=== PATIENT | female | born 1995 | race Caucasian/White ===

== ENCOUNTER 2017-09-27 19:59 | Emergency (ER) | payer OTHER, MEDICAID ==
[~2017-09-27] VITALS: Ht 157.5 cm; Wt 98.4 kg
[~2017-09-27 19:59] MED LIST: ABILIFY20 MG PO; ADIPEX-P37.5 MG PO; ADULT LOW DOSE81 MG PO; AUGMENTIN 875-1 EACH PO; BACTRIM DS TAB1 EACH PO; BENTYL 20 MG TA20 M1 PO; CEPHALEXIN 500500 M3 PO; CONCERTA27 MG PO; GENTAMICIN SU3 MG/ML OPHTHALMIC; IBUPROFEN 600600 M1 PO; K-DUR 20 MEQ T20 MEQ PO; KEFLEX500 M1 PO; LAMICTAL100 MG PO; LEVOTHYROXIN0.075 MG PO; MACROBID 100 M100 M2 PO; NAPROSYN500 MG PO; NOHOMEMEDICATIONS; NORCO 5-325 TA1 EACH PO; PHENTERMINE H37.5 MG PO; ROBAXIN500 MG PO; ULTRAM 50MG TAB50 MG PO; VISTARIL50 MG PO; VITAFOL-OB+DHA1 EACH PO; ZOFRAN ODT4 MG PO; [UNRECOGNIZED DRUG - OTHER]; [UNRECOGNIZED DRUG - REMARK] PO
[2017-09-27] MEDS ORDERED: VISTARIL 25 MG25 M1 PO (20:05)
[2017-09-27 20:30] VITALS: BP 108/65
== END 2017-09-27 20:31 | disposition home or self-care (01) ==
LOC: M.ERS 19:59
DX: O26.893 Other specified pregnancy related conditions, third trimester (principal); M54.42 Lumbago with sciatica, left side; M54.41 Lumbago with sciatica, right side; F31.9 Bipolar disorder, unspecified; F90.9 Attention-deficit hyperactivity disorder, unspecified type; F43.10 Post-traumatic stress disorder, unspecified; E03.9 Hypothyroidism, unspecified; F17.210 Nicotine dependence, cigarettes, uncomplicated; Z88.8 Allergy status to other drugs, medicaments and biological substances; Z3A.27 27 weeks gestation of pregnancy

== ENCOUNTER 2018-02-18 02:21 | Emergency (ER) | payer OTHER, MEDICAID ==
[~2018-02-18] VITALS: Ht 157.5 cm; Wt 95.3 kg
[~2018-02-18 02:21] MED LIST changes: +VISTARIL 25 MG25 M1 PO
[2018-02-18] MEDS ORDERED: ZOLOFT25 MG (02:29)
[2018-02-18] MEDS ORDERED: KEFLEX500 M1 PO (02:35)
[2018-02-18 02:49] VITALS: BP 110/61
== END 2018-02-18 02:50 | disposition home or self-care (01) ==
LOC: M.ERS 02:21
DX: N99.820 Postprocedural hemorrhage of a genitourinary system organ or structure following a genitourinary system procedure (principal); O86.0 Infection of obstetric surgical wound; E03.9 Hypothyroidism, unspecified; F31.9 Bipolar disorder, unspecified; F90.9 Attention-deficit hyperactivity disorder, unspecified type; F17.210 Nicotine dependence, cigarettes, uncomplicated; Z88.8 Allergy status to other drugs, medicaments and biological substances

== ENCOUNTER 2018-06-09 19:01 | Emergency (ER) | payer OTHER, MEDICAID ==
[~2018-06-09] VITALS: Ht 160 cm; Wt 104.3 kg
[~2018-06-09 19:01] MED LIST changes: +ZOLOFT25 MG
[2018-06-09] MEDS ORDERED: LATUDA20 MG PO (19:18)
[2018-06-09] MEDS ORDERED: LAMICTAL100 MG PO (19:19)
[2018-06-09] MEDS ORDERED: STRATTERA18 MG PO (19:19)
[2018-06-09] MEDS ORDERED: ZPAK PO (20:48)
[2018-06-09 21:12] VITALS: BP 121/73
== END 2018-06-09 21:13 | disposition home or self-care (01) ==
LOC: M.ERS 19:01
DX: J20.9 Acute bronchitis, unspecified (principal); F31.9 Bipolar disorder, unspecified; F90.9 Attention-deficit hyperactivity disorder, unspecified type; E03.9 Hypothyroidism, unspecified; F17.210 Nicotine dependence, cigarettes, uncomplicated; Z88.8 Allergy status to other drugs, medicaments and biological substances

== ENCOUNTER 2018-06-20 17:15 | Emergency (ER) | payer OTHER, MEDICAID ==
[~2018-06-20] VITALS: Ht 157.5 cm; Wt 104.3 kg
[~2018-06-20 17:15] MED LIST changes: +LATUDA20 MG PO; +STRATTERA18 MG PO; +ZPAK PO
[2018-06-20 17:43] LABS: ABSOLUTE BASOPHILS 0.1 thou/uL (0.0-0.2); ABSOLUTE EOSINOPHILS 0.1 thou/uL (0.0-0.7); ABSOLUTE LYMPHOCYTES 2.8 thou/uL (0.8-5.3); ABSOLUTE MONOCYTES 0.5 thou/uL (0.0-1.2); ABSOLUTE NEUTROPHILS 7.7 thou/uL (1.6-8.1); BASOPHILS 0.8 %; EOSINOPHILS 1.1 %; HEMATOCRIT 42.9 % (37.0-47.0); HEMOGLOBIN 14.2 gm/dL (12.0-15.0); LYMPHOCYTES 24.7 %; MCH 26.9 pg (26.0-34.0); MCV 81.7 fL (80.0-100.0); MONOCYTES 4.4 %; MPV 8.4 fl. (7.2-11.1); NUCLEATED RBCS 0 /100WBC; PLATELET COUNT* 297 thou/uL (150-400); RBC 5.26 mil/uL (4.20-5.00); WBC 11.2 thou/uL (4.0-11.0)
[2018-06-20 17:51] LABS: ANION GAP 9 mmol/L (7-16); BUN 10 mg/dL (7-18); CALCIUM 9.7 mg/dL (8.5-10.1); CHLORIDE 103 mmol/L (98-107); CO2 27 mmol/L (21-32); CREATININE 0.8 mg/dL (0.6-1.3); GLUCOSE 93 mg/dL (70-99); POTASSIUM 4.1 mmol/L (3.5-5.1); SODIUM 139 mmol/L (136-145)
[2018-06-20 17:56] LABS: ALBUMIN 3.4 g/dL (3.4-5.0); ALKALINE PHOSPHATASE 106 U/L (46-116); SGOT 47 U/L (15-37); SGPT 81 U/L (30-65); TOTAL BILIRUBIN 0.2 mg/dL (<0.1-1.0); TOTAL PROTEIN 7.8 g/dL (6.4-8.2)
[2018-06-20 18:01] LABS: URINE BILIRUBIN NEGATIVE (Negative); URINE BLOOD TRACE (Negative); URINE CLARITY CLEAR; URINE COLOR YELLOW; URINE GLUCOSE-RANDOM NEGATIVE (Negative); URINE KETONES NEGATIVE (Negative); URINE LEUKOCYTES-REFLEX NEGATIVE (Negative); URINE NITRITE-REFLEX NEGATIVE (Negative); URINE PROTEIN NEGATIVE (Negative); URINE UROBILINOGEN 0.2 E.U./dl (0.2-1.0)
[2018-06-20 18:10] LABS: TROPONIN-I LEVEL <0.06 ng/mL (<0.06)
[2018-06-20 18:40] VITALS: BP 116/68
--- NOTE | 2018-06-21 10:22 | EKG ---
[place] [address] ELECTROCARDIOGRAM REPORT Name: POLLY PURILE [facility] [id number] Admission: 06/20/18 Attend Phys: Discharge: 06/20/18 Date of : [birth year] Report #: [id number] THIS REPORT FOR: //name// [facility] ED Test Date: 2018-06-20 Test Time: 17:20:30 Pat Name: POLLY PURI Department: Room: Gender: F Chief Ii Dispatcher: Ailyn MURPHY : 1995 Requested By: Devin Bermudez Order Number: [id number] MD: Luiz Turner Measurements Intervals [place] Rate: 85 P: 7 SD: 134 QRS: 31 QRSD: 88 T: 15 QT: 337 QTc: 401 Interpretive Statements Sinus rhythm Abnormal Q suggests inferior infarct No previous ECG available for comparison Electronically Signed On 06-21-2018 10:22:03 TABLE OPERATOR by Luiz Turner [email or web address] <ELECTRONICALLY SIGNED> By: Luiz Turner MD, [facility] 06/21/18 1022 1720 1720 Luiz Turner MD, FACC /EPI
== END 2018-06-20 18:40 | disposition home or self-care (01) ==
LOC: M.ERS 17:15
PROVIDERS: Nurse Practitioner Family
DX: R07.89 Other chest pain (principal); F31.9 Bipolar disorder, unspecified; F90.9 Attention-deficit hyperactivity disorder, unspecified type; E03.9 Hypothyroidism, unspecified; F17.210 Nicotine dependence, cigarettes, uncomplicated; Z88.8 Allergy status to other drugs, medicaments and biological substances

== ENCOUNTER 2018-07-18 07:55 | Emergency (ER) | payer OTHER, MEDICAID ==
[~2018-07-18] VITALS: Ht 160 cm; Wt 108.9 kg
[2018-07-18] MEDS ORDERED: BACTRIM DS TAB1 EACH PO (08:33)
[2018-07-18 08:48] VITALS: BP 107/63
== END 2018-07-18 08:49 | disposition home or self-care (01) ==
LOC: M.ERS 07:55
DX: L03.114 Cellulitis of left upper limb (principal); F17.210 Nicotine dependence, cigarettes, uncomplicated; F31.9 Bipolar disorder, unspecified; F90.9 Attention-deficit hyperactivity disorder, unspecified type; E03.9 Hypothyroidism, unspecified; Z88.8 Allergy status to other drugs, medicaments and biological substances

== ENCOUNTER 2018-07-20 22:30 | Emergency (ER) | payer OTHER, MEDICAID ==
[~2018-07-20] VITALS: Ht 160 cm; Wt 108.9 kg
[2018-07-20] MEDS ORDERED: HYDROXYZINE (22:37)
[2018-07-20] MEDS ORDERED: RANITIDINE (22:37)
[2018-07-20 23:17] LABS: INFLUENZA A ANTIGEN None Detected (None Detect); INFLUENZA B ANTIGEN None Detected (None Detect)
[2018-07-20] MEDS ORDERED: ACETAMINOPHEN-1 EAC1 PO (23:21)
[2018-07-20 23:32] VITALS: BP 117/78
== END 2018-07-20 23:34 | disposition home or self-care (01) ==
LOC: M.ERS 22:30
PROVIDERS: Physician Assistant
DX: B34.9 Viral infection, unspecified (principal); F31.9 Bipolar disorder, unspecified; F90.9 Attention-deficit hyperactivity disorder, unspecified type; E03.9 Hypothyroidism, unspecified; F17.210 Nicotine dependence, cigarettes, uncomplicated; Z88.8 Allergy status to other drugs, medicaments and biological substances

== ENCOUNTER 2019-05-24 20:08 | Emergency (ER) | payer OTHER, MEDICAID ==
[~2019-05-24] VITALS: Ht 160 cm; Wt 110.7 kg
[~2019-05-24 20:08] MED LIST changes: +ACETAMINOPHEN-1 EAC1 PO; +HYDROXYZINE; +RANITIDINE
[2019-05-24] MEDS ORDERED: CONCERTA54 M1 PO (20:29)
[2019-05-24] MEDS ORDERED: CLEOCIN HCL300 MG PO (20:56)
[2019-05-24] MEDS ORDERED: NORCO 5-325 TA1 EAC1 PO (20:56)
[2019-05-24 21:03] VITALS: BP 125/80
== END 2019-05-24 21:13 | disposition home or self-care (01) ==
LOC: M.ERS 20:08
DX: L03.115 Cellulitis of right lower limb (principal); F31.9 Bipolar disorder, unspecified; E03.9 Hypothyroidism, unspecified; F90.9 Attention-deficit hyperactivity disorder, unspecified type; F17.210 Nicotine dependence, cigarettes, uncomplicated; Z88.8 Allergy status to other drugs, medicaments and biological substances

== ENCOUNTER 2019-06-30 09:44 | Emergency (ER) | payer OTHER, MEDICAID ==
[~2019-06-30] VITALS: Ht 160 cm; Wt 107.5 kg
[~2019-06-30 09:44] MED LIST changes: +CLEOCIN HCL300 MG PO; +CONCERTA54 M1 PO; +NORCO 5-325 TA1 EAC1 PO
[2019-06-30 10:17] LABS: HEMATOCRIT 48.2 % (37.0-47.0); HEMOGLOBIN 16.2 gm/dL (12.0-15.0); MCH 28.3 pg (26.0-34.0); MCHC 33.7 g/dL (28.0-37.0); MPV 9.5 fl. (7.2-11.1); NUCLEATED RBCS 0 /100WBC; PLATELET COUNT* 262 thou/uL (150-400); RBC 5.74 mil/uL (4.20-5.00); RDW-CV 13.3 % (10.5-14.5); WBC 12.6 thou/uL (4.0-11.0)
[2019-06-30 10:24] LABS: CALCIUM 9.2 mg/dL (8.5-10.1); CREATININE 0.9 mg/dL (0.6-1.3); POTASSIUM 4.2 mmol/L (3.5-5.1)
[2019-06-30 10:28] LABS: ALBUMIN 3.9 g/dL (3.4-5.0); TOTAL BILIRUBIN 0.6 mg/dL (<0.1-1.0); TOTAL PROTEIN 8.3 g/dL (6.4-8.2)
[2019-06-30 10:42] LABS: ABSOLUTE LYMPHOCYTES 0.9 thou/uL (0.8-5.3); ABSOLUTE MONOCYTES 0.1 thou/uL (0.0-1.2); ABSOLUTE NEUTROPHILS 11.6 thou/uL (1.6-8.1); ANISOCYTOSIS 1+; PLATELET ESTIMATE ADEQUATE; POIKILOCYTOSIS 1+
[2019-06-30 11:36] LABS: URINE BLOOD 1+ (Negative); URINE CLARITY CLEAR; URINE COLOR YELLOW; URINE GLUCOSE-RANDOM NEGATIVE (Negative); URINE KETONES NEGATIVE (Negative); URINE LEUKOCYTES-REFLEX NEGATIVE (Negative); URINE NITRITE-REFLEX NEGATIVE (Negative); URINE PROTEIN TRACE (Negative); URINE SPECIFIC GRAVITY 1.025 (1.005-1.030); URINE UROBILINOGEN 0.2 E.U./dl (0.2-1.0)
[2019-06-30 11:42] LABS: ICTOTEST (BILI CONFIRMATORY) Negative (Negative); URINE BILIRUBIN 1+ (Negative)
[2019-06-30 11:45] LABS: SQUAMOUS 4-10 Moderate /LPF (0-3)
[2019-06-30 11:46] LABS: BACTERIA-REFLEX 1-9 Few /HPF (None Seen); CASTS None Seen /LPF (None Seen); CRYSTALS None Seen /LPF (None Seen); MUCUS 4-6 Moderate strn/LPF (None Seen); URINE RBC 0-2 Rare /HPF (0-2); URINE WBC-REFLEX 0-5 Rare /HPF (0-5)
[2019-06-30] MEDS ORDERED: NABUMETONE 750750 M1 PO (12:35)
[2019-06-30] MEDS ORDERED: ONDANSETRON HCL4 M2 PO (12:35)
[2019-06-30 13:19] VITALS: BP 115/68
== END 2019-06-30 13:21 | disposition home or self-care (01) ==
LOC: M.ERS 09:44
PROVIDERS: Nurse Practitioner Family
DX: K52.9 Noninfective gastroenteritis and colitis, unspecified (principal); K56.7 Ileus, unspecified; F31.9 Bipolar disorder, unspecified; E03.9 Hypothyroidism, unspecified; F17.210 Nicotine dependence, cigarettes, uncomplicated; Z88.8 Allergy status to other drugs, medicaments and biological substances

== ENCOUNTER 2019-12-09 14:54 | Emergency (ER) | payer OTHER, MEDICAID ==
[~2019-12-09] VITALS: Ht 157.5 cm; Wt 108.9 kg
[~2019-12-09 14:54] MED LIST changes: +NABUMETONE 750750 M1 PO; +ONDANSETRON HCL4 M2 PO
[2019-12-09 15:10] VITALS: BP 130/94
[2019-12-09] MEDS ORDERED: IMITREX 50 MG T50 MG PO (15:56)
== END 2019-12-09 16:10 | disposition home or self-care (01) ==
LOC: M.ERS 14:54
DX: G44.209 Tension-type headache, unspecified, not intractable (principal); E03.9 Hypothyroidism, unspecified; F31.9 Bipolar disorder, unspecified; F90.9 Attention-deficit hyperactivity disorder, unspecified type; F17.210 Nicotine dependence, cigarettes, uncomplicated; Z98.890 Other specified postprocedural states; Z88.8 Allergy status to other drugs, medicaments and biological substances

== ENCOUNTER 2019-12-10 17:33 | Emergency (ER) | payer OTHER, MEDICAID ==
[~2019-12-10] VITALS: Ht 157.5 cm; Wt 108.9 kg
[~2019-12-10 17:33] MED LIST changes: +IMITREX 50 MG T50 MG PO
[2019-12-10 18:50] LABS: HEMATOCRIT 41.2 % (37.0-47.0); HEMOGLOBIN 14.2 gm/dL (12.0-15.0); MCH 29.4 pg (26.0-34.0); MCHC 34.5 g/dL (28.0-37.0); MCV 85.5 fL (80.0-100.0); MPV 9.1 fl. (7.2-11.1); RBC 4.82 mil/uL (4.20-5.00); RDW-CV 12.7 % (10.5-14.5); WBC 9.2 thou/uL (4.0-11.0)
[2019-12-10 19:13] LABS: CALCIUM 10.5 mg/dL (8.5-10.1); CREATININE 0.9 mg/dL (0.6-1.3); POTASSIUM 3.6 mmol/L (3.5-5.1)
[2019-12-10 19:17] LABS: ALBUMIN 3.4 g/dL (3.4-5.0); TOTAL BILIRUBIN 0.3 mg/dL (<0.1-1.0); TOTAL PROTEIN 7.5 g/dL (6.4-8.2)
[2019-12-10 19:41] VITALS: BP 123/82
== END 2019-12-10 19:41 | disposition home or self-care (01) ==
LOC: M.ERS 17:33
PROVIDERS: Emergency Medicine Emergency Medical Services
DX: R51 Headache (principal); Z88.8 Allergy status to other drugs, medicaments and biological substances; R42 Dizziness and giddiness; E03.9 Hypothyroidism, unspecified; F17.210 Nicotine dependence, cigarettes, uncomplicated; Z98.890 Other specified postprocedural states

== ENCOUNTER 2020-05-19 19:09 | Emergency (ER) | payer OTHER, MEDICAID ==
[~2020-05-19] VITALS: Ht 160 cm; Wt 113.4 kg
[2020-05-19] MEDS ORDERED: PROPRANOLOL 20M20 M1 PO (19:32)
[2020-05-19 20:18] LABS: HEMATOCRIT 40.1 % (37.0-47.0); HEMOGLOBIN 13.4 gm/dL (12.0-15.0); MCH 28.9 pg (26.0-34.0); MCHC 33.5 g/dL (28.0-37.0); MCV 86.3 fL (80.0-100.0); MPV 8.5 fl. (7.2-11.1); NUCLEATED RBCS 0 /100WBC; PLATELET COUNT* 213 thou/uL (150-400); RBC 4.64 mil/uL (4.20-5.00); RDW-CV 12.9 % (10.5-14.5); WBC 19.9 thou/uL (4.0-11.0)
[2020-05-19 20:25] LABS: CREATININE 0.9 mg/dL (0.6-1.3); POTASSIUM 3.6 mmol/L (3.5-5.1)
[2020-05-19 20:30] LABS: ALBUMIN 3.2 g/dL (3.4-5.0); TOTAL BILIRUBIN 0.4 mg/dL (<0.1-1.0); TOTAL PROTEIN 8.5 g/dL (6.4-8.2)
[2020-05-19 20:32] LABS: MONOTEST (MONOSPOT)* NEGATIVE (Negative)
[2020-05-19 20:37] LABS: ABSOLUTE NEUTROPHILS 16.9 thou/uL (1.6-8.1); PLATELET ESTIMATE ADEQUATE
[2020-05-19] MEDS ORDERED: AMOXIL 875 MG875 M2 PO (20:51)
[2020-05-19 21:05] VITALS: BP 102/65
== END 2020-05-19 21:06 | disposition home or self-care (01) ==
LOC: M.ERS 19:09
PROVIDERS: Emergency Medicine Emergency Medical Services
DX: J02.0 Streptococcal pharyngitis (principal); Z20.828 Contact with and (suspected) exposure to other viral communicable diseases; E03.9 Hypothyroidism, unspecified; F17.210 Nicotine dependence, cigarettes, uncomplicated; Z88.8 Allergy status to other drugs, medicaments and biological substances; Z98.890 Other specified postprocedural states

== ENCOUNTER 2020-06-02 14:30 | Emergency (ER) | payer OTHER, MEDICAID ==
[~2020-06-02] VITALS: Ht 160 cm; Wt 112.5 kg
[~2020-06-02 14:30] MED LIST changes: +AMOXIL 875 MG875 M2 PO; +PROPRANOLOL 20M20 M1 PO
[2020-06-02 15:20] LABS: HEMATOCRIT 42.6 % (37.0-47.0); HEMOGLOBIN 13.9 gm/dL (12.0-15.0); MCH 28.4 pg (26.0-34.0); MCHC 32.7 g/dL (28.0-37.0); MCV 86.8 fL (80.0-100.0); MPV 8.3 fl. (7.2-11.1); NUCLEATED RBCS 0 /100WBC; PLATELET COUNT* 302 thou/uL (150-400); RBC 4.91 mil/uL (4.20-5.00); RDW-CV 12.7 % (10.5-14.5); WBC 19.5 thou/uL (4.0-11.0)
[2020-06-02 15:28] LABS: CALCIUM 9.3 mg/dL (8.5-10.1); CREATININE 0.8 mg/dL (0.6-1.3); POTASSIUM 3.8 mmol/L (3.5-5.1)
[2020-06-02 15:56] LABS: ABSOLUTE LYMPHOCYTES 2.7 thou/uL (0.8-5.3); ABSOLUTE MONOCYTES 0.6 thou/uL (0.0-1.2); ABSOLUTE NEUTROPHILS 16.2 thou/uL (1.6-8.1)
[2020-06-02 15:57] LABS: PLATELET ESTIMATE ADEQUATE
[2020-06-02 16:37] LABS: URINE BILIRUBIN NEGATIVE (Negative); URINE BLOOD NEGATIVE (Negative); URINE CLARITY CLEAR; URINE COLOR YELLOW; URINE GLUCOSE-RANDOM NEGATIVE (Negative); URINE KETONES NEGATIVE (Negative); URINE LEUKOCYTES-REFLEX NEGATIVE (Negative); URINE NITRITE-REFLEX NEGATIVE (Negative); URINE PROTEIN NEGATIVE (Negative); URINE SPECIFIC GRAVITY 1.015 (1.005-1.030); URINE UROBILINOGEN 0.2 E.U./dl (0.2-1.0)
[2020-06-02] MEDS ORDERED: CLINDAMYCIN HC150 MG PO (17:20)
[2020-06-02] MEDS ORDERED: MAGIC MOUTHWASH SWISH&SPIT (17:23)
[2020-06-02 17:33] VITALS: BP 128/68
== END 2020-06-02 17:33 | disposition home or self-care (01) ==
LOC: M.ERS 14:30
PROVIDERS: Nurse Practitioner Psychiatric/Mental Health
DX: J03.80 Acute tonsillitis due to other specified organisms (principal); B96.89 Other specified bacterial agents as the cause of diseases classified elsewhere; H92.03 Otalgia, bilateral; F31.9 Bipolar disorder, unspecified; F90.9 Attention-deficit hyperactivity disorder, unspecified type; E03.9 Hypothyroidism, unspecified; F17.210 Nicotine dependence, cigarettes, uncomplicated; Z98.890 Other specified postprocedural states; Z88.8 Allergy status to other drugs, medicaments and biological substances

== ENCOUNTER 2020-06-19 23:51 | Emergency (ER) | payer OTHER, MEDICAID ==
[~2020-06-19] VITALS: Ht 160 cm; Wt 112.5 kg
[~2020-06-19 23:51] MED LIST changes: +CLINDAMYCIN HC150 MG PO; +MAGIC MOUTHWASH SWISH&SPIT
[2020-06-20] MEDS ORDERED: MIRENA1 EACH (00:10)
[2020-06-20] MEDS ORDERED: AUGMENTIN 875-1 EACH PO (01:35)
[2020-06-20 01:56] VITALS: BP 120/60
== END 2020-06-20 01:57 | disposition home or self-care (01) ==
LOC: M.ERS 23:51
DX: J02.0 Streptococcal pharyngitis (principal); E03.9 Hypothyroidism, unspecified; F17.210 Nicotine dependence, cigarettes, uncomplicated; Z98.890 Other specified postprocedural states; Z88.8 Allergy status to other drugs, medicaments and biological substances

== ENCOUNTER 2020-08-23 23:41 | Emergency (ER) | payer OTHER, MEDICAID ==
[~2020-08-23] VITALS: Ht 160 cm; Wt 108.9 kg
[~2020-08-23 23:41] MED LIST changes: +MIRENA1 EACH
[2020-08-23 23:54] VITALS: BP 118/60
== END 2020-08-24 00:27 | disposition home or self-care (01) ==
LOC: M.ERS 23:41
DX: S63.591A Other specified sprain of right wrist, initial encounter (principal); S83.8X1A Sprain of other specified parts of right knee, initial encounter; S83.8X2A Sprain of other specified parts of left knee, initial encounter; E03.9 Hypothyroidism, unspecified; F17.210 Nicotine dependence, cigarettes, uncomplicated; Z88.8 Allergy status to other drugs, medicaments and biological substances; Z98.890 Other specified postprocedural states; X50.1XXA Overexertion from prolonged static or awkward postures, initial encounter; Y93.01 Activity, walking, marching and hiking; Y92.89 Other specified places as the place of occurrence of the external cause; Y99.9 Unspecified external cause status

== ENCOUNTER 2021-01-03 17:28 | Emergency (ER) | payer OTHER, MEDICAID ==
[~2021-01-03] VITALS: Ht 160 cm; Wt 108.9 kg
[2021-01-03] MEDS ORDERED: TESSALON PERLE100 MG PO (18:33)
[2021-01-03] MEDS ORDERED: MEDROLDOSEPACK PO (18:33)
[2021-01-03] MEDS ORDERED: PROAIR HFA8.5 GM INH (18:33)
[2021-01-03 18:40] VITALS: BP 113/80
== END 2021-01-03 18:40 | disposition home or self-care (01) ==
LOC: M.ERS 17:28
DX: J06.9 Acute upper respiratory infection, unspecified (principal); Z20.822 Contact with and (suspected) exposure to COVID-19; F17.210 Nicotine dependence, cigarettes, uncomplicated; E03.9 Hypothyroidism, unspecified; N83.209 Unspecified ovarian cyst, unspecified side; Z88.8 Allergy status to other drugs, medicaments and biological substances; Z98.890 Other specified postprocedural states

== ENCOUNTER 2021-06-15 04:23 | Emergency (ER) | payer OTHER, MEDICAID ==
[~2021-06-15] VITALS: Ht 160 cm; Wt 111.1 kg
[~2021-06-15 04:23] MED LIST changes: +MEDROLDOSEPACK PO; +PROAIR HFA8.5 GM INH; +TESSALON PERLE100 MG PO
[2021-06-15 05:11] LABS: ABSOLUTE EOSINOPHILS 0.1 thou/uL (0.0-0.7); ABSOLUTE LYMPHOCYTES 2.2 thou/uL (0.8-5.3); ABSOLUTE MONOCYTES 0.3 thou/uL (0.0-1.2); ABSOLUTE NEUTROPHILS 3.5 thou/uL (1.6-8.1); BASOPHILS 0.4 %; EOSINOPHILS 2.1 %; HEMATOCRIT 40.8 % (37.0-47.0); HEMOGLOBIN 13.8 gm/dL (12.0-15.0); LYMPHOCYTES 36.2 %; MCH 28.7 pg (26.0-34.0); MCHC 33.8 g/dL (28.0-37.0); MCV 84.8 fL (80.0-100.0); MONOCYTES 5.2 %; MPV 8.7 fl. (7.2-11.1); NUCLEATED RBCS 0 /100WBC; PLATELET COUNT* 196 thou/uL (150-400); POLYS 56.1 %; RBC 4.81 mil/uL (4.20-5.00); RDW-CV 12.4 % (10.5-14.5); WBC 6.2 thou/uL (4.0-11.0)
[2021-06-15 05:13] LABS: URINE BILIRUBIN NEGATIVE (Negative); URINE BLOOD NEGATIVE (Negative); URINE CLARITY CLEAR; URINE COLOR YELLOW; URINE GLUCOSE-RANDOM NEGATIVE (Negative); URINE KETONES NEGATIVE (Negative); URINE LEUKOCYTES-REFLEX NEGATIVE (Negative); URINE NITRITE-REFLEX NEGATIVE (Negative); URINE PROTEIN NEGATIVE (Negative); URINE UROBILINOGEN 0.2 E.U./dl (0.2-1.0)
[2021-06-15 05:38] LABS: CALCIUM 8.7 mg/dL (8.5-10.1); CREATININE 0.6 mg/dL (0.6-1.3); POTASSIUM 3.8 mmol/L (3.5-5.1)
[2021-06-15 06:31] LABS: AMP/METHAMP Negative (Negative); BARBITURATES Negative (Negative); BENZODIAZEPINES Negative (Negative); COCAINE Negative (Negative); METHADONE Negative (Negative); OPIATES Negative (Negative); PCP Negative (Negative); THC Negative (Negative)
[2021-06-15] MEDS ORDERED: DEXAMETHASONE 44 M1 PO (08:32)
[2021-06-15] MEDS ORDERED: IBUPROFEN 800800 MG PO (08:32)
[2021-06-15 08:38] VITALS: BP 100/63
== END 2021-06-15 08:38 | disposition home or self-care (01) ==
LOC: M.ERS 04:23
PROVIDERS: Emergency Medicine
DX: U07.1 COVID-19 (principal); R10.30 Lower abdominal pain, unspecified; F90.9 Attention-deficit hyperactivity disorder, unspecified type; E03.9 Hypothyroidism, unspecified; F32.9 Major depressive disorder, single episode, unspecified; F17.210 Nicotine dependence, cigarettes, uncomplicated; Z88.8 Allergy status to other drugs, medicaments and biological substances